=== PATIENT | female | born 1945 | race Caucasian/White ===

== ENCOUNTER 2016-11-03 14:43 | Inpatient (IN) | payer MEDICARE, BC ==
[~2016-11-03] VITALS: Ht 160 cm; Wt 104.5 kg
[2016-11-04] MEDS ORDERED: ZOLP10TA3 PO (10:33)
[2016-11-04] MEDS ORDERED: DICL75TA PO ×2 (10:33)
[2016-11-04] MEDS ORDERED: CITA20TA4 PO (10:33)
[2016-11-04] MEDS ORDERED: PRIL20CA9 PO (10:33)
[2016-11-04] MEDS ORDERED: METO25TA6 PO (10:33)
[2016-11-18] MEDS ORDERED: ceFAZolin 2 GM PREMIX 50 ML IV SCH ×2 (05:45→13:00)
[2016-11-18] MEDS: CHLORHEXIDINE GLUCONATE 4% SOLN 120 ML BTL TOP SCH (05:45)
[2016-11-18] MEDS ORDERED: VANCOMYCIN 1000 MG/NS 250 ML (for <70 kg) IV SCH ×2 (05:45)
[2016-11-18] MEDS ORDERED: HYDR-3516 PO (05:58)
[2016-11-18] MEDS ORDERED: MACR100C3 PO (05:58)
[2016-11-18] MEDS ORDERED: SENN1TAB PO (05:58)
[2016-11-18] MEDS ORDERED: METOPROLOL TARTRATE 25 MG TAB PO PRN (06:00)
[2016-11-18] MEDS ORDERED: INSULIN HUMAN REGULAR 1,000 UNITS/10 ML VIAL SQ PRN (06:00)
[2016-11-18 06:02] VITALS: BP 195/99; PULSE 70; RESP 20; TEMP 98.9; O2SAT 95
[2016-11-18] MEDS ORDERED: GENTAMICIN SULFATE 80 MG/2 ML VIAL ONE (06:05)
[2016-11-18 06:06] LABS: BACTERIA, URINE RARE /hpf; BLOOD, URINE NEG (NEG); COMMENT (UR) CULTURE INDICATED; CULTURE IF INDICATED CULTURE INDICATED; GLUCOSE,URINE NEG (NEG); GRANULAR CAST, URINE 1 /lpf; KETONE, URINE NEG (NEG); MUCUS URINE FEW /lpf (OCC); NITRITE,URINE NEG (NEG); SQUAMOUS EPITHELIAL CELL URINE 1 /hpf (0-5); URINE COLOR YELLOW (YELLW/STRAW)
[2016-11-18] MEDS ORDERED: FAMOTIDINE 20 MG/2 ML VIAL ONE (06:37)
[2016-11-18] MEDS ORDERED: APREPITANT 40 MG CAP ONE (06:37)
[2016-11-18] MEDS ORDERED: SODIUM CHLORIDE 0.9% IV SCH (07:00)
[2016-11-18] MEDS ORDERED: TRANEXAMIC ACID IV SCH (07:00)
[2016-11-18] MEDS ORDERED: EXPAREL PERI-ARTICULAR INJECTION (TOTAL VOL. 60 ML) P-ARTICULR SCH ×2 (07:00)
[2016-11-18] MEDS ORDERED: SODIUM CHLORID 0.9% 500 ML IV SCH (07:00)
[2016-11-18] MEDS ORDERED: LACTATED RINGER'S 1000 ML IV SCH (07:00)
[2016-11-18] MEDS ORDERED: ACETAMINOPHEN 1000 MG/100 ML VIAL IV ONE (07:17)
--- NOTE | 2016-11-18 09:13 | PD.OP ---
cc: Ulises Gomez MD Operative Report Date of Surgery: Nov 18, 2016 Preoperative Diagnosis: Severe left hip osteoarthritis Postoperative Diagnosis: Procedure: Left total hip arthroplasty by anterior approach Anesthesia: Gen. Surgeon: Ulises Gomez [employer] Driver(s): Enrike Ramos PA-C The surgical procedure was assisted by my physician urgent care physician assistant. My P.A. presence was necessary throughout this case for the manipulation and positioning of the surgical extremity. My P.A. was assisting me throughout the duration of this procedure. The skill set of a physician urgent care physician assistant was medically necessary to complete this procedure. During the surgical case the regional vice president surgical sales was working at the back table and the physician urgent care physician assistant was directly assisting me. Operation and Findings: PLAN OF ACTIVITY Weight bear as tolerated. DRAINS: 7-mm MEGAN drain. IMPLANTS USED DePuy Corail size 11 collared stem with a size [50] Leroy Gription cup and a [32+1.5] ceramic Biolox ceramic head. DETAILS OF PROCEDURE: This patient has a long history of hip pain. Patient was found to have severe osteoarthritis. The patient had radiographic evidence of joint space narrowing with [id number] arthritis and osteophytes around the acetabulum as well as the femoral head. There was also some cystic changes. The patient failed conservative treatment with pain medications, anti-inflammatories, physical therapy, assistive devices including a cane, as well as therapeutic injection of the hip. Patient's hip arthritis was limiting his ability to ambulate and perform activities of daily living. The patient wished to proceed with surgery and informed consent was obtained. Operative site was marked. I discussed both posterior approach and anterior approach with the patient and decision was made for anterior approach. Patient was brought to OR and placed on OR table. IV sedation and general anesthesia was administered by anesthesiologist. Patient positioned on a Shari table and was given IV antibiotics. Time-out procedure was performed. The hip and thigh were prepped with alcohol followed by Hibiclens. The thigh was draped in the usual sterile fashion. Clean Air Suite was used for this procedure. The procedure began with a 5-inch incision over the anterolateral thigh. Subcutaneous tissue was dissected with Bovie. The fascia over the tensa fasciae latae was incised. Care was taken to avoid injury to the lateral femoral cutaneous nerve. The tensor muscle was retracted laterally. Sartorius was retracted medially. Retractors were now placed. The reflected head of the rectus is now elevated. A capsulotomy was performed over the anterior head capsule. Sutures were placed to help retract the capsule. At this point the femoral head and neck were identified. With soft tissue protected, oscillating saw was used to make a cut through the femoral neck, the femoral head was now removed. At this point attention was turned to preparation of the acetabulum. The labrum was excised. The acetabulum was sequentially reamed up to size [50]. A Leroy cup was now placed. Fluoroscopy was used to aid in identification of appropriate version. Cup was fully impacted and found to have excellent fit. Hole eliminator was now placed. The liner was now impacted into the cup. At this point the hip was externally rotated. A hook was placed around the proximal femur. The capsule was released off the lateral and medial femur. The hip was now extended and adducted. Retractors were placed around the proximal femur to allow for exposure. A box osteotome was used to remove the lateral cortex of the femoral neck. A broach was used to help lateralize the prosthesis. Canal finder was used to create a path down the canal. Next, the canal was sequentially broached up to size [11]. This was found to be an excellent fit. Calcar planer was placed. A standard head was placed, hip was reduced. Trial head was now was placed and the hip was found to have excellent stability with good range of motion. The leg lengths were measured under fluoroscopy and found to be equal compared to preoperatively. Trial broach was removed. The Corail stem was opened. Stem was fully impacted into the proximal femur in appropriate version. The femoral head was placed. The hip was again reduced. Fluoroscopy confirmed excellent alignment of prosthesis. The wound was thoroughly irrigated and capsule was closed with #1 Vicryl. The fascia over the tensor fasciae muscle was closed with #1 Vicryl, subcutaneous tissue was closed with 3-0 Vicryl and the skin was closed with baldomero and Dermabond skin closure. The capsule layers were injected with a mixture of saline and bupivicaine. Dressings were applied. The patient was transferred to Recovery Room in stable condition. Ulises Gomez MD Nov 18, 2016 09:13
[2016-11-18] MEDS ORDERED: ZOLPIDEM TARTRATE 10 MG TAB PO PRN (09:15)
[2016-11-18] MEDS ORDERED: ACETAMINOPHEN/HYDROcodone 325 MG/10 MG TAB PO PRN (09:15)
[2016-11-18] MEDS ORDERED: MORPHINE SULFATE 4 MG/ML INJ IV PUSH PRN (09:15)
[2016-11-18] MEDS ORDERED: NALOXONE HCL 0.4 MG/ML AMP IV PRN (09:15)
[2016-11-18] MEDS ORDERED: ONDANSETRON HCL 4 MG/2 ML VIAL IVP PRN (09:15)
[2016-11-18] MEDS ORDERED: SODIUM CHLORIDE 0.9% FLUSH 5 ML FLUSH IVF PRN (09:15)
[2016-11-18] MEDS ORDERED: Post-op Orders (for Pharmacy) MISC XX ONE (09:15)
[2016-11-18] MEDS ORDERED: *LABETALOL HCL 100 MG/20 ML VIAL PERIprocedural Use ONLY ONE (09:40)
[2016-11-18] MEDS ORDERED: MIDAZOLAM HCL 2 MG/2 ML VIAL ONE (09:47)
[2016-11-18] MEDS ORDERED: fentaNYL CITRATE 250 MCG/5 ML AMP ONE (09:47)
[2016-11-18] MEDS ORDERED: MORPHINE SULFATE 4 MG/ML INJ ONE (09:47)
[2016-11-18] MEDS: LACTATED RINGER'S 1000 ML INJ 1,000 ML IV SCH ×2 (09:50→21:38)
[2016-11-18] MEDS ORDERED: TRANEXAMIC ACID INJ 1,000 MG in SODIUM CHLORIDE 0.9% INJ 100 ML IV ONE (10:00)
[2016-11-18] MEDS ORDERED: KETOROLAC TROMETHAMINE 30 MG/ML (IVP) VIAL IV PUSH SCH (10:00)
[2016-11-18] MEDS ORDERED: DO NOT ADM ANY ANTICOAGULANT DRUGS XX PRN (10:15)
[2016-11-18] MEDS ORDERED: *morphine SULFATE 8 MG/ML PERIprocedure ONLY ONE (10:27)
--- NOTE | 2016-11-18 10:39 | RADRPT ---
EXAM DATE/TIME: 11/18/2016 09:54 [facility] COMPARISON: No previous studies available for comparison. INDICATIONS : Evaluate hardware placement left hip MEDICAL HISTORY : Arthritis. SURGICAL HISTORY : Bilateral hip arthroplasty, lumbar fusion ENCOUNTER: Initial ACUITY: 1 day PAIN SCORE: 0/10 LOCATION: Left Hip FINDINGS: Bilateral noncemented total hip arthroplasty in place with superior acetabular screws on the right si de. The bony pelvic ring is grossly intact. Transpedicular screws seen in the lower lumbar region. Multiple skin baldomero about the left thigh. Surgical drain in the left greater trochanteric region. CONCLUSION: Expected postoperative findings from left total hip arthroplasty. Morgan Zavala MD on November 18, 2016 at 10:37 Board Certified Radiologist. This report was verified electronically.
[2016-11-18] MEDS: KETOROLAC TROMETHAMINE 30 MG/ML (IVP) VIAL IV PUSH SCH ×2 (12:20→23:41)
[2016-11-18] MEDS ORDERED: LACTATED RINGER'S 1000 ML INJ 1,000 ML IV ONE (13:26)
[2016-11-18] MEDS ORDERED: PROPOFOL 200 MG/20 ML AMP IV ONE (13:26)
[2016-11-18] MEDS ORDERED: ONDANSETRON HCL 4 MG/2 ML VIAL IV PUSH ONE (13:26)
[2016-11-18] MEDS ORDERED: NEOSTIGMINE 3 MG/3 ML SYR IV ONE (13:26)
--- NOTE | 2016-11-18 14:09 | RADRPT ---
EXAM DATE/TIME: 11/18/2016 08:37 [facility] COMPARISON: No previous studies available for comparison. INDICATIONS : Total left hip replacement. MEDICAL HISTORY : None. SURGICAL HISTORY : None. ENCOUNTER: Initial ACUITY: 1 day PAIN SCORE: Non-responsive. LOCATION: Left hip. FINDINGS: 2 images are recorded digitally after placement of a noncemented total hip arthroplasty. Multiple sk in baldomero are present. Alignment appears anatomic. CONCLUSION: Total hip arthroplasty is grossly intact. Morgan Zavala MD on November 18, 2016 at 14:07 Board Certified Radiologist. This report was verified electronically.
[2016-11-18] MEDS: VANCOMYCIN INJ 1,000 MG in SODIUM CHLOR 0.9% 250 ML INJ 250 ML IV SCH (17:15)
[2016-11-18 18:00] VITALS: BP 109/57; PULSE 77; RESP 16; TEMP 97.7; O2SAT 95
[2016-11-18 19:03] VITALS: BP 138/62; PULSE 79; RESP 16; TEMP 97.8; O2SAT 95
[2016-11-18 20:00] VITALS: BP 115/57; PULSE 71; RESP 17; TEMP 98.2; O2SAT 95
[2016-11-18] MEDS ORDERED: DOCUSATE SODIUM 50 MG/SENNA 8.6 MG TAB PO SCH (21:00)
[2016-11-18] MEDS: POLYETHYLENE GLYCOL 17 GM PKG PO SCH (21:00)
[2016-11-18] MEDS: SENNOSIDES 8.6 MG TAB PO SCH (21:13)
[2016-11-18] MEDS: SODIUM CHLORIDE 0.9% FLUSH 5 ML FLUSH IVF SCH (21:13)
[2016-11-18] MEDS: MAGNESIUM HYDROXIDE SUSP 30 ML CUP PO SCH (21:13)
[2016-11-18] MEDS: ceFAZolin 2 GM PREMIX 50 ML IV SCH (21:13)
[2016-11-18] MEDS: NITROFURANTOIN MONOHYD MACROCR 100 MG CAP PO SCH (21:13)
[2016-11-18] MEDS: ACETAMINOPHEN/HYDROcodone 325 MG/10 MG TAB PO PRN (23:40)
[2016-11-19] VITALS (8 sets, daily range): BP systolic 117–133; BP diastolic 53–61; PULSE 60–66; RESP 16–18; TEMP 96.7–97.7; O2SAT 95–98
[2016-11-19] MEDS: ceFAZolin 2 GM PREMIX 50 ML IV SCH (02:25)
[2016-11-19] MEDS: CHLORHEXIDINE GLUCONATE 4% SOLN 120 ML BTL TOP SCH ×2 (02:52→22:53)
[2016-11-19 05:18] LABS: HEMATOCRIT 33.8 % (35.0-46.0); REVIEW FLAG FINAL
[2016-11-19] MEDS: VANCOMYCIN INJ 1,000 MG in SODIUM CHLOR 0.9% 250 ML INJ 250 ML IV SCH (05:47)
[2016-11-19] MEDS ORDERED: HYDR-3366 PO (06:37)
[2016-11-19] MEDS ORDERED: XARE10TA PO (06:37)
[2016-11-19] MEDS ORDERED: WALKER WHEELS/F1 MIS (06:37)
[2016-11-19] MEDS ORDERED: COMMODE 3-IN-11 MIS (06:37)
--- NOTE | 2016-11-19 06:39 | PD.ORT.PN ---
Subjective Subjective Remarks POD 1 s/p left hip RAVI doing well. out of bed with therapy multiple times yesterday Objective Vitals Vital Signs Date Time Temp Pulse Resp B/P Pulse Ox O2 Delivery O2 Flow Rate FiO2 11/19/16 04:00 96.9 62 18 122/58 97 11/19/16 00:00 97.4 64 18 117/61 96 11/18/16 20:00 98.2 71 17 115/57 95 11/18/16 19:03 97.8 79 16 138/62 95 11/18/16 18:00 97.7 77 16 109/57 95 11/18/16 11:45 68 16 119/65 97 Nasal Cannula 3 11/18/16 11:30 68 16 111/60 97 Nasal Cannula 3 11/18/16 11:15 66 16 115/64 94 Nasal Cannula 3 11/18/16 11:00 62 16 115/66 96 Nasal Cannula 3 11/18/16 10:45 68 16 114/66 96 Nasal Cannula 3 11/18/16 10:30 67 16 109/59 96 Nasal Cannula 4 11/18/16 10:15 76 16 147/79 96 Nasal Cannula 4 11/18/16 10:00 91 16 125/50 94 Nasal Cannula 4 11/18/16 09:45 82 14 173/82 97 Nasal Cannula 4 11/18/16 09:40 88 14 206/93 94 11/18/16 09:38 98.0 90 14 194/84 98 Nasal Cannula 6 I/O 11/18/16 11/18/16 11/18/16 11/19/16 11/19/16 11/19/16 07:00 15:00 23:00 07:00 15:00 23:00 Intake Total 1725 ml 600 ml 240 ml Output Total 710 ml 545 ml 650 ml Balance 1015 ml 55 ml -410 ml Intake Oral 600 ml 240 ml IV Total 225 ml Other 1500 ml Output Urine Total 280 ml 475 ml 550 ml Drainage Total 180 ml 70 ml 100 ml Estimated Blood Loss 250 ml # Bowel Movements 0 0 Result Diagram: 11/19/16 0459 Imaging Last 24 hours Impressions Hip and Pelvis X-Ray 11/18/16 0908 Signed Impressions: Service Date/Time: October 09:54 - CONCLUSION: Expected postoperative findings from left total hip arthroplasty. Morgan Zavala MD Objective Remarks LLE: dressing clean an;d dry. intact. +drain. NVI Assessment & Plan Assessment and Plan 1) Left RAVI Anterior - POD 1 -WBAT -dressing change and DC drain POD 2 -work with therapy -DVT prohpylaxis -plan for DC home with [facility] Sat/Sun depending on patient progress -f/u with [facility] or [facility] in 2 weeks Enrike Ramos Nov 19, 2016 06:38
--- NOTE | 2016-11-19 06:56 | HHI.FF ---
Face to Face Verification Diagnosis: (1) S/P total hip arthroplasty Physical Therapy Gait training Hip: Total hip, Protocol: Left Left LE Weight Bearing: WB as tolerated Nursing Dressing Changes: Daily dressing change, Coverderm/Primapore (begin adding xeroform on POD 10) I have seen patient Deepika Meredith on 11/19/16. My clinical findings support the need for the requested home health care services because: Ltd mobility - disease progression I certify that my clinical findings support that this patient is homebound because: Post-op weakness Enrike Ramos Nov 19, 2016 06:56
[2016-11-19] MEDS: SODIUM CHLORIDE 0.9% FLUSH 5 ML FLUSH IVF SCH ×2 (08:22→20:05)
[2016-11-19] MEDS: ENOXAPARIN SODIUM 40 MG/0.4 ML SYRINGE SQ SCH (08:22)
[2016-11-19] MEDS: METOPROLOL SUCCINATE 25 MG EXTENDED RELEASE TAB PO SCH (08:23)
[2016-11-19] MEDS: CITALOPRAM HYDROBROMIDE 20 MG TAB PO SCH (08:23)
[2016-11-19] MEDS: POLYETHYLENE GLYCOL 17 GM PKG PO SCH ×2 (08:23→21:00)
[2016-11-19] MEDS: PANTOPRAZOLE SOD 20 MG DELAYED RELEASE TAB PO SCH (08:23)
[2016-11-19] MEDS: SENNOSIDES 8.6 MG TAB PO SCH ×2 (08:23→20:07)
[2016-11-19] MEDS: ACETAMINOPHEN/HYDROcodone 325 MG/10 MG TAB PO PRN ×3 (08:24→18:40)
[2016-11-19] MEDS: MAGNESIUM HYDROXIDE SUSP 30 ML CUP PO SCH ×2 (08:25→21:00)
[2016-11-19] MEDS: NITROFURANTOIN MONOHYD MACROCR 100 MG CAP PO SCH ×2 (08:25→20:07)
[2016-11-19] MEDS: LACTATED RINGER'S 1000 ML INJ 1,000 ML IV SCH ×2 (08:25→22:02)
[2016-11-19] MEDS: KETOROLAC TROMETHAMINE 30 MG/ML (IVP) VIAL IV PUSH SCH (10:15)
[2016-11-19] MEDS ORDERED: BACT800T5 PO (12:16)
[2016-11-19] MEDS: SULFAMETHOXAZOLE-TRIMETHOPRIM DS 800-160 MG TAB PO SCH ×2 (14:49→20:05)
[2016-11-19] MEDS: DOCUSATE SODIUM 100 MG CAP PO SCH (20:05)
[2016-11-20] VITALS: BP 100/59; PULSE 65; RESP 18; TEMP 96.8; O2SAT 95
[2016-11-20] MEDS: KETOROLAC TROMETHAMINE 30 MG/ML (IVP) VIAL IV PUSH SCH (01:27)
[2016-11-20 07:10] VITALS: BP 111/54; PULSE 58; RESP 18; TEMP 96.3; O2SAT 100
[2016-11-20] MEDS: POLYETHYLENE GLYCOL 17 GM PKG PO SCH (09:00)
[2016-11-20] MEDS: MAGNESIUM HYDROXIDE SUSP 30 ML CUP PO SCH (09:00)
[2016-11-20] MEDS: SENNOSIDES 8.6 MG TAB PO SCH (09:00)
[2016-11-20] MEDS: SODIUM CHLORIDE 0.9% FLUSH 5 ML FLUSH IVF SCH (09:00)
--- NOTE | 2016-11-20 09:14 | PD.ORT.PN ---
Subjective Subjective Remarks Patient comfortable. Pain controlled. Objective Vitals Vital Signs Date Time Temp Pulse Resp B/P Pulse Ox O2 Delivery O2 Flow Rate FiO2 11/20/16 07:10 96.3 58 18 111/54 100 11/20/16 00:00 96.8 65 18 100/59 95 11/19/16 20:08 97.1 60 18 119/55 95 11/19/16 18:50 Room Air 11/19/16 18:14 96 21 11/19/16 16:15 97.7 60 16 122/56 97 11/19/16 14:22 96 11/19/16 12:10 97.6 66 16 125/53 98 I/O 11/19/16 11/19/16 11/19/16 11/20/16 11/20/16 11/20/16 07:00 15:00 23:00 07:00 15:00 23:00 Intake Total 240 ml 1160 ml 480 ml 480 ml Output Total 650 ml 100 ml Balance -410 ml 1160 ml 380 ml 480 ml Intake Oral 240 ml 1160 ml 480 ml 480 ml Output Urine Total 550 ml Drainage Total 100 ml 100 ml # Voids 4 2 2 # Bowel Movements 0 1 0 Result Diagram: 11/19/16 0459 Imaging Last 24 hours Impressions Hip and Pelvis X-Ray 11/18/16 0908 Signed Impressions: Service Date/Time: October 09:54 - CONCLUSION: Expected postoperative findings from left total hip arthroplasty. Morgan Zavala MD Objective Remarks LLE: dressing clean an;d dry. intact. +drain. NVI Assessment & Plan Assessment and Plan 1) Left RAVI Anterior - POD 2 -WBAT -dressing change POD 2 -work with therapy -DVT prohpylaxis -plan for DC home with [facility] Sat/Sun depending on patient progress -f/u with [facility] or [facility] in 2 weeks -Orthopedically stable for discharge -Dr. Gill present during patient assessment Yasir Woo Nov 20, 2016 09:14
[2016-11-20] MEDS: ENOXAPARIN SODIUM 40 MG/0.4 ML SYRINGE SQ SCH (10:03)
[2016-11-20] MEDS: SULFAMETHOXAZOLE-TRIMETHOPRIM DS 800-160 MG TAB PO SCH (10:04)
[2016-11-20] MEDS: NITROFURANTOIN MONOHYD MACROCR 100 MG CAP PO SCH (10:04)
[2016-11-20] MEDS: DOCUSATE SODIUM 100 MG CAP PO SCH (10:04)
[2016-11-20] MEDS: PANTOPRAZOLE SOD 20 MG DELAYED RELEASE TAB PO SCH (10:05)
[2016-11-20] MEDS: CITALOPRAM HYDROBROMIDE 20 MG TAB PO SCH (10:05)
[2016-11-20] MEDS: METOPROLOL SUCCINATE 25 MG EXTENDED RELEASE TAB PO SCH (10:07)
[2016-11-20 10:34] VITALS: O2SAT 97
[2016-11-20] MEDS: LACTATED RINGER'S 1000 ML INJ 1,000 ML IV SCH (11:08)
== END 2016-11-20 13:00 | disposition home health service (06) | DRG 470 ==
LOC: HSDI 11-18 05:17 → N06A 11-18 12:30
PROVIDERS: ADMIT Orthopaedic Surgery Orthopaedic Trauma; ATTEND Orthopaedic Surgery Orthopaedic Trauma
PROC: 0SRB04A Replacement of Left Hip Joint with Ceramic on Polyethylene Synthetic Substitute, Uncemented, Open Approach (ICD-10-PCS; principal; 2016-11-18 06:44)
DX: M16.12 Unilateral primary osteoarthritis, left hip (principal); Z68.41 Body mass index [BMI] 40.0-44.9, adult; I10 Essential (primary) hypertension; K21.9 Gastro-esophageal reflux disease without esophagitis; E66.9 Obesity, unspecified; Z87.891 Personal history of nicotine dependence
CPT/HCPCS: 73501; 73502; 76000; 81001; 85014; 85018; 86850; 86900; 86901; 87086; C1776; C9290; J0131; J0690; J1580; J1650; J1885; J2250; J2270; J2405; J2710; J3010; J3370; J7050; J7120; J8501

== ENCOUNTER → 2016-11-04 | Outpatient (CLI) | payer MEDICARE, BC ==
[~2016-11-04] MED LIST: BACT800T5 PO; CITA20TA4 PO; COMMODE 3-IN-11 MIS; DICL75TA PO; FISHCAP; FURO20 PO; HYDR-3366 PO; HYDR-3516 PO; HYDR-3533 PO; MACR100C3 PO; METO25TA6 PO; NAPR500 PO; OMEP20TA PO; PRIL20CA9 PO; SENN1TAB PO; WALKER WHEELS/F1 MIS; XARE10TA PO; ZOLP10TA3 PO
[2016-11-04 11:08] LABS: APTT (PATIENT) 27.3 SEC (24.3-30.1); AUTOMATED NEUTROPHIL # 3.3 TH/MM3 (1.8-7.7); BASOPHIL % 0.9 % (0.0-2.0); EOSINOPHIL # 0.1 TH/MM3 (0-0.4); HEMATOCRIT 42.3 % (35.0-46.0); HEMO FLAGS DIFF FINAL; LYMPH % 30.9 % (9.0-44.0); LYMPHOCYTE # 1.7 TH/MM3 (1.0-4.8); MEAN CELL VOLUME 86.2 FL (80.0-100.0); MEAN CORPUSCULAR HEMOGLOBIN 29.5 PG (27.0-34.0); MEAN CORPUSCULAR HGB CONC 34.2 % (32.0-36.0); MONO % 6.8 % (0.0-8.0); NEUT % 59.4 % (16.0-70.0); PLATELET COUNT 195 TH/MM3 (150-450); PROTHROMBIN TIME - PATIENT 10.7 SEC (9.8-11.6); RED BLOOD COUNT 4.91 MIL/MM3 (4.00-5.30); RED CELL DISTRIBUTION WIDTH 14.5 % (11.6-17.2); WHITE BLOOD COUNT 5.5 TH/MM3 (4.0-11.0)
[2016-11-04 11:12] LABS: BICARBONATE 30.7 MEQ/L (21.0-32.0)
[2016-11-04 11:40] LABS: WESTERGREN SEDIMENTATION RATE 9 mm/hr (0-30)
[2016-11-04 12:43] LABS: BACTERIA, URINE OCC /hpf; BLOOD, URINE NEG (NEG); COMMENT (UR) CULTURE INDICATED; CULTURE IF INDICATED CULTURE INDICATED; GLUCOSE,URINE NEG (NEG); KETONE, URINE NEG (NEG); MUCUS URINE FEW /lpf (OCC); NITRITE,URINE NEG (NEG); SQUAMOUS EPITHELIAL CELL URINE 1 /hpf (0-5); URINE COLOR YELLOW (YELLW/STRAW)
--- NOTE | 2016-11-04 13:38 | EKG ---
Date Performed: 11/04/2016 Time Performed: 10:13:15 PTAGE: 71 years EKG: SINUS BRADYCARDIA BORDERLINE ECG NO PREVIOUS TRACING DOCTOR: Mauricio Zendejas Interpretating Date/Time 11/04/2016 13:37:22
== END ==
LOC: CPRE 09:42
PROVIDERS: ATTEND Orthopaedic Surgery Orthopaedic Trauma
DX: Z01.812 Encounter for preprocedural laboratory examination (principal); Z01.810 Encounter for preprocedural cardiovascular examination; M79.609 Pain in unspecified limb; Z96.60 Presence of unspecified orthopedic joint implant; R00.1 Bradycardia, unspecified; R82.99 Other abnormal findings in urine
CPT/HCPCS: 36415; 80048; 81001; 85025; 85610; 85652; 85730; 86140; 87086; 93005

== ENCOUNTER → 2016-11-11 | Outpatient (CLI) | payer MEDICARE, BC ==
[~2016-11-11] MED LIST changes: -FISHCAP; -FURO20 PO; -HYDR-3533 PO; -NAPR500 PO; -OMEP20TA PO
[2016-11-11 10:39] LABS: BACTERIA, URINE OCC /hpf; BLOOD, URINE NEG (NEG); COMMENT (UR) CULTURE INDICATED; CULTURE IF INDICATED CULTURE INDICATED; GLUCOSE,URINE NEG (NEG); KETONE, URINE NEG (NEG); MUCUS URINE FEW /lpf (OCC); NITRITE,URINE NEG (NEG); SQUAMOUS EPITHELIAL CELL URINE <1 /hpf (0-5); URINE COLOR YELLOW (YELLW/STRAW)
== END ==
LOC: CPRE 08:48
PROVIDERS: ATTEND Orthopaedic Surgery Orthopaedic Trauma
DX: Z01.812 Encounter for preprocedural laboratory examination (principal); N39.0 Urinary tract infection, site not specified; B96.89 Other specified bacterial agents as the cause of diseases classified elsewhere
CPT/HCPCS: 81001; 87086